=== PATIENT | female | born 1980 ===

== ENCOUNTER 2021-05-15 08:15 | Outpatient (RCR) | payer BC, SELFPAY ==
[2021-05-03 12:54] VITALS: BMI 26.4
--- NOTE | 2021-05-03 13:55 | PC.NURSE ---
Patient referred to the [facility] by her therapist and crisis as patient is struggling with depression, after the of her 3rd son, with passive SI and reports experiencing an increase in anxiety with panic attacks. Feeling overwhelmed. Reports multiple life stressors triggering her current symptoms including loss of employment, recent engagement, recent move to a new home, relationship discord, and taking care of 3 children under the age of 99 years old. Patient reports she is starting couples therapy on . Patient is alert and oriented x4. Calm and cooperative. Denied SI at present however reports she does have thoughts, no plan or intent. Her children are her protective factor. Patient gave verbal permission to email her a copy of her safety plan. Reports a history of depression after the of her 3 sons. 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 Patient reports history of binge drinking a few times a year drinking 3-4 glasses of wine and wants to learn more about her use. Educated patient about the mental and physical effects of binge drinking. Medications reconciled with patient and patient's pharmacy. She reports taking medications as prescribed. Medication education provided.
--- NOTE | 2021-05-03 16:24 | P.HPPSP_ITS ---
HPI Chief Complaint: MDD, Anxiety Sources of Information: patient interviewed, chart reviewed and crisis/core team assessment reviewed HPI Subjective Notes: [place] Warning and Conditional Voluntary Guardianship: No Medical Problems Affecting Mental Status: No Narrative: Patient is a 40-year-old female, referred by therapist and crisis to PHP due to worsening depressive and anxiety symptoms. Reports she has had a multiple life events over the past year, including loss of job due to COVID, and delivery of her 3rd child, depression, becoming engage, and moving to area/new house with troy and her children. Describes increased symptoms of anxiety and depression, including feeling overwhelmed, hopeless, helpless, passive SI with no intent or plan, tearfulness, poor sleep, and overeating. Reports that she becomes irritable and agitated when overwhelmed with stress and anxiety. Reports that she feels isolated and unstable. Patient reports that she was adopted at 3-month-old from [place], and raised by her parents and older brother, who was also adopted from the same country. Describes a normal childhood, meeting all milestones as expected. Graduated high school and college. Denies any trauma history, although does feel that adoption experience was traumatic and now suffers from a banded mint issues. Patient reports that she has experienced depression after the of the child. She is hoping to gain coping skills, structure, and support during participation in PHP program. Has trialed multiple SSRIs with no effect, currently is receiving duloxetine 90 mg daily as well as hydroxyzine. Lives with troy and her 3 children, describes home life as supportive. Does state however that her sim ?has his own issues ?, and that she feels she n eeds additional support. Past Psychiatric History: Patient denies any inpatient level of care, no substance use treatment, no PHP/IOP in past. She has received therapy sporadically in high school and in college, as well as an adult. Has experienced increased symptoms of depression and anxiety after the of each of her 3 children, and has sought out therapy each time. Currently receiving duloxetine and hydroxyzine, reports that she feels these meds are helping. Medical Evaluation Reviewed: No (not available) [facility] Narrative: Patient reports that she has no medical diagnoses or issues. Family History: Was adopted at 3-month-old from [place]. Raised by parents along with adopted brother. Describes family life growing up as ?normal?. Reports mother does have a history of anxiety, agoraphobia, and panic disorder. Reports has an uncle that completed suicide when patient was in 10th grade. Social History: Patient met all milestones as expected. She graduated high school and college. 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 Currently unemployed due to COVID. Lives with troy and her 3 children. Has several friends that she confides in, finds them supportive. Substance History: Reports that she uses cannabis edibles approximately once weekly, states this is been for several years, did not report last use. Reports that she has been using wine and liquor since she was a teenager. States that she only uses alcohol occasionally, but that she has binged drink at times in the past, and has found this problematic. Does not identify alcohol use as an issue at this time. Denies any other type of substance use. Trauma History: Reports that adoption process was traumatic, and has caused her to have abandonment issues. Diagnostics Vital Signs (24Hr): Body Mass Index 26.4 Meds/Allergies Allergies Allergies Allergy/AdvReac Type Severity Reaction Status Date / Time No Known Allergies Allergy Verified 05/03/21 08:35 Mental Status Exam Mental Status Exam Narrative: Well-developed, well-nourished, female, in no apparent distress. Patient Appearance: Well Grooomed and Appropriate Patient Orientation: Person, Place, Time and Situation Level of Consciousness: Awake, Appropriate and Alert Patient Behavior: Appropriate and Cooperative Mood Description: Appropriate, Depressed and Anxious Affect Description: Appropriate, Depressed and Anxious Patient Cognition Impaired: No Speech Pattern: Clear and Appropriate Memory Description: Intact Hallucinations: None Delusions: Not Present Thought Process: Intact Thought Content: positive for Intact Depressive Symptoms: Increased Anxiety, Difficulty Sleeping, Changes in Appetite, Loss of Int. in Activity, Feelings of Worthlessness, Significant Weight Gain, Hopelessness, Increased Fatigue and Thoughts of /Suicide (Passive, no intent or plan.) Judgement: Fair Telehealth Telehealth Location of provider rendering services: practice address Location of patient: address on file Patient Identification confirmed using: Name, : Yes Telehealth method: video Patient verbally consented to treatment: Yes Patient verbally consented to billing insurance company: Yes Patient informed of any privacy concerns related to visit: Yes Time spent with patient (mins): 45 Assessment & Plan Assessment & Plan (1) MDD (major depressive disorder), recurrent episode, moderate: Status: Diagnosis Status: Acute Code(s): F33.1 - Major depressive disorder, recurrent, moderate Assessment and Plan: Patient endorses active depressive symptoms, passive SI at times. Denies any thoughts of self-harm today, no safety concerns. Patient feels current dose of duloxetine 90 mg daily is appropriate. Reports that it was increased within the past month from 60 mg daily, and she wishes to ?give it a chance before trying anything different ?. Patient reports that she does not need any refills. Patient did report she wished that she had information regarding support groups for depression and anxiety. This publicity writer did provide phone number for [place] support groups, located on [email or web address] website. Patient stated that she would call them. Patient was also encouraged to go to the [facility] website, which also offers education and information on support groups regarding depression and anxiety. (2) ALLEN (generalized anxiety disorder): Status: Diagnosis Status: Acute Code(s): F41.1 - Generalized anxiety disorder Assessment and Plan: Patient endorses ongoing symptoms of anxiety, which she stayed have worsened over the past year due to multiple life changing events. Currently receives hydroxyzine 25 mg at night. She reports that this is helping somewhat with her anxiety symptoms, as well as helping her to fall sleep. She is not interested in any med changes regarding anxiety at this time, as she is hoping to learn more healthy coping skills going forward, and wait before adding or changing medication. Assessment and Plan: No safety concerns at this time. Patient does not require any prescriptions at this time. Will follow-up as per protocol. Patient educated on: diagnosis, medication risk/benefits and therapeutic strategies Informed Consent: understands Reason for continued partial hosp. stay Substantial Risk for: inability to function and med/psych decompensation Certification I certify that partial hospital treatment is medically necessary due to the symptoms and problems resulting from the patient's mental illness and the failure to treat the patient at the partial hospital level of care would likely result in the patient requiring inpatient psychiatric care which could not be prevented at a less intensive level of care.
--- NOTE | 2021-05-07 09:42 | PC.NURSE ---
Patient will not be attending group today as she stated her son has a doctors appointment. Patient also stated she has a first time marriage counseling session on and does not want to reschedule the appointment as it took a long time for her to get the appointment. Staff aware.
--- NOTE | 2021-05-07 14:07 | PC.NURSE ---
Case opened in clinical team meeting
--- NOTE | 2021-05-08 13:13 | PC.NURSE ---
Emailed patient requested information/education about Alcohol Use and Your Health.
--- NOTE | 2021-05-09 13:28 | P.EN_ITS ---
Event Note Date of Service: 05/09/21 Event Note: 14-day scripts sent for duloxetine DR 30mg and 60mg, for total daily dose 90mg, sent to [facility] in [place], after speaking with Matthew, pharmacist at that location.
--- NOTE | 2021-05-10 12:16 | HO.PHPPROGNO ---
Subjective Subjective Date of Service: 05/10/21 Reason For Visit: MDD, Anxiety Subjective Notes: [place] Warning Guardianship: No Medical Problems Affecting Mental Status: No Interim History: Kaitlynn states I'm doing okay today . Medication Compliance: Yes Side effects from medications: No Attending Groups: Yes Review of Systems Acute medical concerns: No Medical Review of Systems: unchanged Review of Systems Review of Systems A full review of systems was completed and was negative with the exception of pertinent positives noted in history of the presenting illness. Yes all other systems are reviewed and are negative Constitutional: Reports no additional constitutional complaints Eyes: Reports no additional eye complaints Reports system reviewed and no additional complaints, except as documented Cardiovascular: Reports no additional cardiovascular complaints Psychiatric: Reports abnormal sleep pattern and Reports anxiety Endocrine: Reports no additional endocrine complaints Mental Status Exam Mental Status Exam Narrative: Well-developed, well-nourished female, in no apparent distress. Fully conversant during encounter. Patient Appearance: Well Grooomed and Appropriate Patient Orientation: Person, Place, Time and Situation Level of Consciousness: Appropriate and Alert Patient Behavior: Appropriate and Cooperative Mood Description: Appropriate, Depressed and Anxious Affect Description: Appropriate, Depressed and Anxious Patient Cognition Impaired: No Ability to Follow Directions: Excellent Speech Pattern: Clear, Appropriate and Coherent Memory Description: Intact Hallucinations: None Delusions: Not Present Thought Process: Intact, Goal Oriented and Linear Thought Content: positive for Intact and positive for Logical Depressive Symptoms: Increased Anxiety and Difficulty Sleeping Judgement: Fair Diagnostics Vital Signs (24Hr): Body Mass Index 26.4 Assessment & Plan Assessment & Plan (1) MDD (major depressive disorder), recurrent episode, moderate: Status: Acute Code(s): F33.1 - Major depressive disorder, recurrent, moderate Assessment and Plan: Patient reports she feels current dose of duloxetine is helping control depressive symptoms at this time, states ?I am doing okay ?. Still some dysphoria, although states that she feels it is starting to improve. No safety concerns at this time. Refill script was sent to pharmacy yesterday, as patient had called to report she only had one day's worth duloxetine left. We did discuss mood fluctuations related to hormonal levels and status. Patient is also taking control at this time via oral route, which she feels is also helping to stabilize her mood during her monthly menstrual cycle. She is also researching support groups for depression, blended families, which she believes will be beneficial. (2) ALLEN (generalized anxiety disorder): Status: Acute Code(s): F41.1 - Generalized anxiety disorder Assessment and Plan: Patient reports that her anxiety has somewhat improved. She reports that the hydroxyzine is helping with anxiety and also to follow sleep. She uses the p.r.n. melatonin some nights, but finds that she does not require this every night. Assessment and Plan: 1. Continue with current medication regimen. 2. Patient does not require any refills at this time. 3. No safety concerns at this time. 4. Will f/u as per protocol. Patient educated on: diagnosis, medication risk/benefits and therapeutic strategies Informed Consent: understands Reason for contiued partial hosp. stay Substantial Risk for: inability to function and med/psych decompensation Certification I certify that partial hospital treatment is medically necessary due to the symptoms and problems resulting from the patient's mental illness and the failure to treat the patient at the partial hospital level of care would likely result in the patient requiring inpatient psychiatric care which could not be prevented at a less intensive level of care. Greater than 50% of the session was spent on counseling and/or coordination of care Discharge Plan Discharge Attending provider: Zohaib Castillo Primary Care Provider: Rocío Blake Medications: New duloxetine 30 mg capsule,delayed release(DR/EC) 30 mg PO DAILY 14 Days Qty: 14 RF: 0 duloxetine 60 mg capsule,delayed release(DR/EC) 60 mg PO DAILY 14 Days Qty: 14 RF: 0 Discontinued duloxetine 30 mg Capsule,Delayed Release(Dr/Ec) 30 mg PO DAILY RF: 0 duloxetine 60 mg Capsule,Delayed Release(Dr/Ec) 60 mg PO DAILY RF: 0 No Action hydroxyzine pamoate 25 mg Capsule 25 mg PO DAILY PRN (Reason: Anxiety) RF: 0 norethindrone ac-eth estradiol 1-20 mg-mcg tablet 1 tab PO DAILY RF: 0 melatonin 3 mg Capsule 3 mg PO BEDTIME PRN (Reason: Insomnia) RF: 0 Referrals: Rocío Blake NP [Primary Care Provider] - 1 Week Telehealth Telehealth Location of provider rendering services: practice address Location of patient: address on file Patient Identification confirmed using: Name, : Yes Telehealth method: video Patient verbally consented to treatment: Yes Patient verbally consented to billing insurance company: Yes Patient informed of any privacy concerns related to visit: Yes Time spent with patient (mins): 15
--- NOTE | 2021-05-14 13:50 | PC.NURSE ---
I spoke with the client about her needs. She reports feeling overwhelmed by things that she needs to do and coming to the program takes too much time from her day. She requests that tomorrow be her last day and she will look at [facility] and [facility] to see if there is a weekly group she can attend.
--- NOTE | 2021-05-15 12:58 | PC.NURSE ---
Patient discharded today, 05/15/2021 from [facility]. Patient reports ready for discharge. Patient denies SI/HI. Patient requested discharge today as she states she is overwhelmed with the amount of time spent daily at [facility]. Reports multiple needs at home. Patient reports she will seek out weekly support group. Patient plans to contact [facility] and [facility]. Patient met today with Anna Laws APRN this AM. Medications reviewed. Patient verbalizes understanding of medications. Any immediate medication changes patient may need will be handled by provider in the community. Patient in agreement. Discharge plan and medication list faxed to PCP, Dr Pulido at [facility] and Psychopharmacology Prescriber, Nelsy Brady APRN..
--- NOTE | 2021-05-15 14:53 | P.PNPSP_ITS ---
Documented by User: Anna Laws 05/15/21 15:02 Subjective Subjective Date of Service: 05/15/21 Reason For Visit: MDD, Anxiety Subjective Notes: [place] Warning Guardianship: No Medical Problems Affecting Mental Status: No Interim History: Patient states she feels okay today. Denies any thought of harm to self or others, no safety concerns. She expressed concern over feeling tired alot , which she attributes to being a mother, and also possibly her current dose of duloxetine. She states that she believes the dose may be too high, and that she is considering dropping it down to 60 mg daily. She does continue with some dysphoric mood, reports that she feels at times depressed and irritable. She states that she has decided to leave [facility], as she is not finding the group beneficial right now. She says that although she has found the program supportive overall, she she feels that some type of parent support group would better fit her needs at this time. Medication Compliance: Yes Side effects from medications: Yes (reports feeling tired, possibly from duloxetine) Attending Groups: Yes Review of Systems Acute medical concerns: No Medical Review of Systems: unchanged Review of Systems Review of Systems Yes all other systems are reviewed and are negative Mental Status Exam Mental Status Exam Narrative: Well-developed, well-nourished female, appears stated age. SELVIN. Appropriately dressed. Erect posture. Patient Appearance: Well Grooomed and Appropriate Patient Orientation: Person, Place, Time and Situation Level of Consciousness: Appropriate and Alert Patient Behavior: Appropriate and Cooperative Mood Description: Appropriate, Depressed and Anxious Affect Description: Appropriate, Depressed and Anxious Ability to Follow Directions: Excellent Speech Pattern: Clear Memory Description: Intact Hallucinations: None Delusions: Not Present Thought Process: Intact, Goal Oriented and Linear Thought Content: positive for Intact, positive for Goal Oriented and positive for Linear Depressive Symptoms: Difficulty Sleeping and Loss of Energy Judgement: Fair Diagnostics Vital Signs (24Hr): Body Mass Index 26.4 Assessment & Plan Assessment & Plan (1) ALLEN (generalized anxiety disorder): Status: Acute Code(s): F41.1 - Generalized anxiety disorder Assessment and Plan: Patient reports she does continue with some symptoms of anxiety, but that they have lessened as she has participated in program. She states that she feels restless, and that she needs to get out and exercise more, as this has helped with her anxiety in the past. (2) MDD (major depressive disorder), recurrent episode, moderate: Status: Acute Code(s): F33.1 - Major depressive disorder, recurrent, moderate Assessment and Plan: Patient reports continued dysphoric mood, although symptoms have lessened since entering program. She states that she has no thoughts of harm to self or others, no safety concerns. She does plan to speak with her provider regarding duloxetine, and she believes it works better at a lower dose. She does not need any medication refills at this time. She feels stable and ready for discharge, and plans to reach out to a parenting support group in the [facility] area. Assessment and Plan: Patient's last day is today. Patient educated on: diagnosis, medication risk/benefits and therapeutic strategies Informed Consent: understands Reason for contiued partial hosp. stay Substantial Risk for: stable for discharge Certification I certify that partial hospital treatment is medically necessary due to the symptoms and problems resulting from the patient's mental illness and the failure to treat the patient at the partial hospital level of care would likely result in the patient requiring inpatient psychiatric care which could not be prevented at a less intensive level of care. Greater than 50% of the session was spent on counseling and/or coordination of care Discharge Plan Discharge Attending provider: Zohaib Castillo Primary Care Provider: Rocío Blake Additional Instructions: Trinity Chambers DETASSELING CREW SUPERVISOR 05/20/21 Nelsy Ramirez SUPERVISOR [employer]IL[employer]ER PROCESSING service net 05/29/21 Medications: New duloxetine 30 mg capsule,delayed release(DR/EC) 30 mg PO DAILY 14 Days Qty: 14 RF: 0 duloxetine 60 mg capsule,delayed release(DR/EC) 60 mg PO DAILY 14 Days Qty: 14 RF: 0 Discontinued duloxetine 30 mg Capsule,Delayed Release(Dr/Ec) 30 mg PO DAILY RF: 0 duloxetine 60 mg Capsule,Delayed Release(Dr/Ec) 60 mg PO DAILY RF: 0 No Action hydroxyzine pamoate 25 mg Capsule 25 mg PO DAILY PRN (Reason: Anxiety) RF: 0 norethindrone ac-eth estradiol 1-20 mg-mcg tablet 1 tab PO DAILY RF: 0 melatonin 3 mg Capsule 3 mg PO BEDTIME PRN (Reason: Insomnia) RF: 0 Referrals: Rocío Blake NP [Primary Care Provider] - 1 Week Stand Alone Forms: Patient Portal Discharge page Telehealth Telehealth Location of provider rendering services: practice address Location of patient: address on file Patient Identification confirmed using: Name, : Yes Telehealth method: voice only Patient verbally consented to treatment: Yes Patient verbally consented to billing insurance company: Yes Patient informed of any privacy concerns related to visit: Yes Time spent with patient (mins): 15 Documented by User: Zohaib Castillo 05/15/21 15:07 Subjective Subjective Date of Service: 05/15/21 Reason For Visit: MDD, Anxiety Assessment & Plan Assessment & Plan (1) ALLEN (generalized anxiety disorder): Status: Acute Code(s): F41.1 - Generalized anxiety disorder (2) MDD (major depressive disorder), recurrent episode, moderate: Status: Acute Code(s): F33.1 - Major depressive disorder, recurrent, moderate Discharge Plan Discharge Attending provider: Zohaib Castillo Primary Care Provider: Rocío Blake Additional Instructions: Trinity Chambers DETASSELING CREW SUPERVISOR 05/20/21 Nelsy Ramirez SUPERVISOR F[employer]IL[employer]ER [employer]ESSING service net 05/29/21 Medications: New duloxetine 30 mg capsule,delayed release(DR/EC) 30 mg PO DAILY 14 Days Qty: 14 RF: 0 duloxetine 60 mg capsule,delayed release(DR/EC) 60 mg PO DAILY 14 Days Qty: 14 RF: 0 Discontinued duloxetine 30 mg Capsule,Delayed Release(Dr/Ec) 30 mg PO DAILY RF: 0 duloxetine 60 mg Capsule,Delayed Release(Dr/Ec) 60 mg PO DAILY RF: 0 No Action hydroxyzine pamoate 25 mg Capsule 25 mg PO DAILY PRN (Reason: Anxiety) RF: 0 norethindrone ac-eth estradiol 1-20 mg-mcg tablet 1 tab PO DAILY RF: 0 melatonin 3 mg Capsule 3 mg PO BEDTIME PRN (Reason: Insomnia) RF: 0 Referrals: Rocío Blake NP [Primary Care Provider] - 1 Week Stand Alone Forms: Patient Portal Discharge page
--- NOTE | 2021-05-15 16:17 | PC.NURSE ---
Left DC message for Trinity Abundio REYESSW
== END 2021-05-16 07:09 | disposition home or self-care (01) ==
LOC: HO.PHPA 08:15
PROVIDERS: PCP Nurse Practitioner Family; Visit Provider Psychiatry & Neurology Psychiatry
DX: F33.1 Major depressive disorder, recurrent, moderate (principal); F41.1 Generalized anxiety disorder; Z79.899 Other long term (current) drug therapy
CPT/HCPCS: 90791; 90853